=== PATIENT | male | born 1975 | race African-American/Black ===

== ENCOUNTER 2018-05-20 02:14 | Emergency (ER) | payer OTHER ==
[~2018-05-20] VITALS: Ht 172.7 cm; Wt 73.4 kg
[2018-05-20 02:20] VITALS: Ht 172.7 cm; Wt 73.4 kg
--- NOTE | 2018-05-20 02:55 | ERD ---
ER Documentation Chief Complaint Chief Complaint L leg swelling x2 weeks s/p injury to same leg. good CMS, able to walk HPI 42-year-old male presents with left lower extremity pain and swelling that has had for 2 weeks since he was pushing a cart and exerting himself. No fall or injury. No recent travel. No chest pain palpitations or shortness of breath. He is ambulatory. No fevers. Was taking anti-inflammatories at home but did not help. ROS All systems reviewed and are negative except as per history of present illness. Medications Home Meds Active Scripts Hydrocodone/Acetaminophen ([place] 5-325 Tablet) 1 Each Tablet, 1 TAB PO Q6H PRN for PAIN, #15 TAB Prov:JUAN RAMON SIFUENTES PA-C 05/20/18 Ibuprofen* (Motrin*) 800 Mg Tab, 800 MG PO Q6, #30 TAB Prov:JUAN RAMON SIFUENTES PA-C 05/20/18 PMhx/Soc Medical and Surgical Hx: pt denies Medical Hx, pt denies Surgical Hx Hx Alcohol Use: Yes (occasionally) Hx Substance Use: No Hx Tobacco Use: Yes Smoking Status: Current some day smoker FmHx Family History: No diabetes Physical Exam Vitals Vital Signs Date Temp Pulse Resp B/P (MAP) Pulse Ox O2 O2 Flow FiO2 Time Delivery Rate 05/20/18 97.6 70 16 134/88 100 02:20 (103) Physical Exam INITIAL VITAL SIGNS: Reviewed by me GENERAL: Awake, alert and oriented x 4, well appearing, nontoxic, speaking in full sentences. No acute distress HEAD: Atraumatic NECK: Supple. No masses. Full range of motion. No meningismus. No midline t enderness. RESPIRATORY: Clear to auscultation bilaterally. Symmetric chest wall rise. No wheezing or rales. No accessory muscle use. CV: Regular rate and rhythm. No murmurs, rubs, or gallops. ABDOMEN: Soft, non-distended. Nontender. Negative [place]. Negative McBurneys point tenderness. No CVA tenderness bilaterally. No guarding. No rebound. : Deffered. EXTREMITIES: Left lower extremity is swollen compared to the left below the knee, no erythema or warmth, pedal pulse 2+ bilaterally, sensation to light touch is intact throughout Results 24 hrs Current Medications Medications Dose Sig/Bowen Start Time Status Last (Trade) Ordered Route PRN Stop Time Admin Dose Reason Admin 1 tab ONCE ONCE 05/20/18 DC 05/20/18 Acetaminophen PO 03:00 02:58 / 05/20/18 03:01 Hydrocodone Bitart ([place] ()) Procedures/MDM Patient here with left lower extremity swelling. No tachycardia. No recent travel. Venous duplex ultrasound of left lower extremity ordered and he was given [place] for pain. Ultrasound showed No evidence for left leg deep venous thrombosis.however there was a Large ovoid vertically oriented hypoechoic structure or collection without internal color flow, that appears to be between the superficial and deep posterior calf musculature, the differential for which includes a hematoma or seroma, possibly related to Christianson's cyst rupture or calf muscular injury, although abscess is not excluded. I reviewed these findings with Dr. Mitchell who also came and examined the patient. We believe is most likely a ruptured cyst or hematoma. Less likely infection. He has no fever. No tachycardia. Patient was given Orth O shoe and his leg was Flaco wrapped and he recommended rest ice compression and elevation at home and he was discharged with ibuprofen and [place] for pain. Patient counseled regarding my diagnostic impression and care plan. Prior to discharge all questions answered. Pt agrees with treatment plan and understands strict return precautions. Pt is instructed to follow up with primary care provider within 24-48 hours. Precautionary instructions provided including instructions to return to the ER if not improving or for any worsening or changing symptoms or concerns. Departure Diagnosis: Primary Impression: Leg hematoma Condition: Stable JUAN RAMON SIFUENTES PA-C May 20, 2018 02:55
[2018-05-20] MEDS ORDERED: HYDROCODONE/APAP (10/325) TAB PO ONE (03:00)
[2018-05-20] MEDS ORDERED: IBUP800T48 PO (03:52)
[2018-05-20] MEDS ORDERED: HYDR-4011 PO (03:52)
[2018-05-20 04:03] VITALS: BP 125/89; PULSE 80; RESP 18
== END 2018-05-20 04:04 | disposition home or self-care (01) ==
LOC: FTE 02:14
DX: S80.12XA Contusion of left lower leg, initial encounter (principal); F17.210 Nicotine dependence, cigarettes, uncomplicated; X58.XXXA Exposure to other specified factors, initial encounter; Y92.9 Unspecified place or not applicable
CPT/HCPCS: 93971; Z7502; Z7610